=== PATIENT | male | born 1975 | race Caucasian/White ===

== ENCOUNTER 2017-02-12 06:46 | Day surgery (SDC) | payer OTHER ==
[~2017-02-12 06:46] MED LIST: Lactated Ringers 1,000 ML IV SCH
[2017-02-12] MEDS ORDERED: Bupivacaine 0.5% 30 ML SDV ONE (07:18)
[2017-02-12] MEDS ORDERED: Bupivacaine 0.5% 10 ML SDV ONE (07:20)
--- NOTE | 2017-02-12 07:33 | PCM.PREANE ---
Preanesthetic Assessment - Anesthesia/Transfusion/Family Hx Anesthesia History: Prior Anesthesia Without Reaction Other Type of Anesthesia Reaction Comment: Denies any known problem in past, no known fmly hx Problems Family History of Anesthesia Reaction: No Transfusion History: No Prior Transfusion(s) - Review of Systems General: No Symptoms Pulmonary: No Symptoms Cardiovascular: No Symptoms Gastrointestinal: No Symptoms Neurological: No Symptoms Other: Reports: None - Physical Assessment NPO Status Date: 02/11/17 O2 Sat by Pulse Oximetry: 95 Respiratory Rate: 16 Vital Signs: Last Vital Signs Temp 36.3 C 02/12/17 06:55 Pulse 77 02/12/17 06:55 Resp 16 02/12/17 06:55 BP 146/111 H 02/12/17 06:55 Pulse Ox 95 02/12/17 06:55 Height: 1.83 m Weight: 112.945 kg ASA Class: 2 Mental Status: Alert & Oriented x3 Airway Class: Mallampati = 2 Dentition: Reports: Normal Dentition ROM/Head Extension: Full Lungs: Clear to Auscultation, Normal Respiratory Effort Cardiovascular: Regular Rate, Regular Rhythm - Allergies Allergies/Adverse Reactions: Allergies Allergy/AdvReac Type Severity Reaction Status Date / Time No Known Allergies Allergy Verified 02/07/17 16:34 - Anesthesia Plan Pre-Op Medication Ordered: None - Acknowledgements Anesthesia Type Planned: General Anesthesia (surgeon prefers GA-LMA) Pt an Appropriate Candidate for the Planned Anesthesia: Yes Alternatives and Risks of Anesthesia Discussed w Pt/Guardian: Yes Pt/Guardian Understands and Agrees with Anesthesia Plan: Yes PreAnesthesia Questionnaire Other HEENT History: wears glasses Musculoskeletal History: Reports: Back Pain, Chronic, Fracture Other Musculoskeletal History: hx of fx left arm Neurological History: Reports: Concussion, Migraines Endocrine/Metabolic History: Reports: Obesity/BMI 30+ - Past Surgical History GI Surgical History: Reports: Appendectomy, Other (See Below) Other GI Surgeries/Procedures: excision of pilonidial cyst Musculoskeletal Surgical History: Reports: Other (See Below) Other Musculoskeletal Surgeries/Procedures:: excision of lipoma from back - SUBSTANCE USE Smoking Status *Q: Current Every Day Smoker Tobacco Use Within Last Twelve Months: Cigarettes Days Per Week of Alcohol Use: 0 Recreational Drug Use History: No - HOME MEDS Home Medications: Home Meds Naproxen Sodium [Aleve] 440 mg PO ASDIRECTED PRN 06/02/14 [History] Acetaminophen [Tylenol Extra Strength] 500 mg PO Q4H PRN 02/07/17 [History] buPROPion HCl [Wellbutrin Xl] 150 mg PO DAILY 02/07/17 [History] - CURRENT (IN HOUSE) MEDS Current Meds: Current Medications Lactated Ringer's (Ringers, Lactated) 1,000 mls @ 125 mls/hr IV ASDIRECTED PAYAM Last Admin: 02/12/17 06:59 Dose: 125 mls/hr Discontinued Medications Bupivacaine HCl (Marcaine 0.5%) Confirm Administered Dose 30 ml .ROUTE .STK-MED ONE Stop: 02/12/17 07:19 Bupivacaine HCl (Sensorcaine-Mpf 0.5%) Confirm Administered Dose 10 ml .ROUTE .STK-MED ONE Stop: 02/12/17 07:21
[2017-02-12] MEDS ORDERED: Propofol 200 MG/20 ML SDV ONE (07:37)
[2017-02-12] MEDS ORDERED: fentaNYL 100 MCG/2 ML SDV ONE ×2 (07:37→08:06)
[2017-02-12] MEDS ORDERED: Midazolam 1 MG/ML 2 ML SDV ONE (07:37)
[2017-02-12] MEDS ORDERED: Ondansetron 4 MG/2 ML SDV ONE (07:37)
[2017-02-12] MEDS ORDERED: Ketorolac 30 MG/ML SDV ONE (08:12)
[2017-02-12] MEDS ORDERED: Morphine 10 MG/ML Syringe IVPUSH PRN (08:38)
[2017-02-12] MEDS ORDERED: Ondansetron 4 MG/2 ML SDV IVPUSH PRN (08:38)
[2017-02-12] MEDS ORDERED: Acetaminophen/HYDROcodone 325-5 MG Tab PO PRN (08:38)
[2017-02-12] MEDS ORDERED: Lactated Ringers 1,000 ML IV SCH (08:45)
--- NOTE | 2017-02-12 08:50 | PCM.OPNOTE ---
- General Post-Op/Procedure Note Date of Surgery/Procedure: 02/12/17 Operative Procedure(s): Excision 6 cm verrucous left groin lesion with layered 9 cm closure Pre Op Diagnosis: Verrucous skin lesion, left groin Post-Op Diagnosis: Same Anesthesia Technique: General LMA (ASA II) Primary Surgeon: Don Moyer Fluid Replacement, Intraop: 800 EBL in mLs: 10 Condition: Good Free Text/Narrative:: Dictation [id number] CPT CODE [id number]
--- NOTE | 2017-02-12 09:28 | PCM.POSTAN ---
POST ANESTHESIA ASSESSMENT - MENTAL STATUS Mental Status: Alert, Oriented - RESPIRATORY Respiratory Status: Respiratory Rate WNL, Airway Patent, O2 Saturation Stable - CARDIOVASCULAR CV Status: Pulse Rate WNL, Blood Pressure Stable - GASTROINTESTINAL GI Status: No Symptoms - PAIN Pain Score: 3 - POST OP HYDRATION Hydration Status: Adequate & Stable - OBSERVATIONS Free Text/Narrative:: no anesthesia problems
--- NOTE | 2017-02-12 09:30 | OR ---
SURGEON: Don Moyer M.D. DATE OF PROCEDURE: 02/12/2017 OPERATION PERIFORMED: Excision 6 cm left groin lesion with layered 9 cm closure. ANESTHESIA: General LMA. ASA CLASSIFICATION: II. PREOPERATIVE DIAGNOSIS: A 6 cm left inguinal verrucous lesion. POSTOPERATIVE DIAGNOSIS: A 6 cm left inguinal verrucous lesion. ESTIMATED BLOOD LOSS: 10 mL. INTRAOPERATIVE FLUID REPLACEMENT: An 800 mL of crystalloid. DESCRIPTION OF PROCEDURE: The patient was taken to the operating room and placed on the operating table in the supine position. Time-out was called for appropriate identification of the patient and procedure. Thigh-high TEDs and sequential compression boots were placed. The surgical site had been marked prior to the patient entering the operating room. Following satisfactory attainment of general anesthesia with placement of an LMA, the patient was placed in a frog-leg position and left groin was prepped with Betadine solution. The skin underlying the 6 cm mass was infiltrated with 10 mL of 0.5% Marcaine solution. Elliptical skin incision was made and using electrocautery the verrucous lesion was removed. Hemostasis was obtained with the use of electrocautery. The incision was then closed in 2 layers approximating the subcutaneous tissue with 3-0 Polysorb and the skin with subcuticular 4-0 Monocryl. The incision was Steri-Stripped and dressed with a sterile Tegaderm pad. Sponge, needle, and instrument counts were all correct. The patient tolerated the procedure well. Following emergence from anesthesia and extubation, he was taken to recovery room in stable condition. PRIMARY SURGEON: SECONDARY SURGEON: BRIM MOLDER: REASON BRIM MOLDER WAS NECESSARY: ROLE OF BRIM MOLDER: VIDYA HOOD /[id number]
[2017-02-12 09:45] VITALS: BP 152/99
== END 2017-02-12 09:41 | disposition home or self-care (01) ==
LOC: MW.SDS 06:46
PROVIDERS: ATTEND Surgery
DX: B07.9 Viral wart, unspecified (principal); G43.909 Migraine, unspecified, not intractable, without status migrainosus; G89.29 Other chronic pain; M54.9 Dorsalgia, unspecified; F17.210 Nicotine dependence, cigarettes, uncomplicated; E66.9 Obesity, unspecified; Z68.33 Body mass index [BMI] 33.0-33.9, adult; Z83.3 Family history of diabetes mellitus; Z79.899 Other long term (current) drug therapy; Z98.890 Other specified postprocedural states
CPT/HCPCS: 11406; 12034; J1885; J2250; J2405; J3010; J7120; 00400; 88305; J2704